=== PATIENT | female | born 1980 | race Two or more races ===

== ENCOUNTER 2017-06-10 10:45 | Emergency (ER) | payer OTHER ==
[~2017-06-10] VITALS: Ht 160 cm; Wt 63.5 kg
[2017-06-10 11:15] LABS: *BILIRUBIN,URIN NEGATIVE (NEGATIVE); *BLOOD, URINE NEGATIVE (NEGATIVE); *CLARITY,URINE SLIGHTLY CLOUDY (CLEAR); *COLOR,URINE YELLOW (YELLOW); *KETONES,URINE NEGATIVE (NEGATIVE); *PROTEIN,URINE NEGATIVE (NEGATIVE); *UROBILINOGEN,URINE 0.2 E.U./dl (NORMAL); LEUKOCYTE ESTERASE ,URINE NEGATIVE (NEGATIVE); NITRITE, URINE NEGATIVE (NEGATIVE); UGLUCOSE NEGATIVE (NEGATIVE)
[2017-06-10] MEDS ORDERED: KETOROLAC TROMETHAMINE 15 MG INJ IV ONE (11:15)
[2017-06-10] MEDS ORDERED: KETOROLAC TROMETHAMINE 15 MG INJ ONE (11:21)
[2017-06-10 11:25] LABS: *URINE HCG, QUAL NEGATIVE (NEGATIVE)
[2017-06-10 11:33] LABS: BACTERIA,URINE FEW /HPF (NONE SEEN); RBC,URINE 0-3 /HPF (0-3); SQUAMOUS EPITHELIAL CELL,UR MANY /HPF (NONE SEEN); WBC,URINE 0-3 /HPF (0-3)
[2017-06-10 11:43] LABS: BASOPHILS % (AUTO) 0.7 % (0.0-2.0); EOSINOPHILS # (AUTO) 0.2 K/uL (0.0-0.7); EOSINOPHILS % (AUTO) 3.2 % (0.0-7.0); HEMATOCRIT 42.1 % (37-47); HEMOGLOBIN 13.6 G/DL (12.0-16.0); LYMPHOCYTES # (AUTO) 1.7 K/UL (0.8-4.8); LYMPHOCYTES % (AUTO) 27.1 % (20.5-51.5); MEAN CORPUSCULAR HEMOGLOBIN 29.3 UUG (27.0-31.0); MEAN CORPUSCULAR HGB CONC 32 g/dL (32.0-37.0); MEAN CORPUSCULAR VOLUME 90.7 FL (81.0-99.0); MONOCYTES # (AUTO) 0.4 K/UL (0.1-1.30); MONOCYTES % (AUTO) 5.7 % (0.0-11.0); NEUTROPHILS # (AUTO) 4.1 K/UL (1.8-8.9); NEUTROPHILS % (AUTO) 63.3 % (38.5-71.5); PLATELET COUNT (AUTO) 260 K/UL (150-450); RED BLOOD CELL COUNT(AUTO) 4.64 MIL/UL (4.2-5.4); WHITE BLOOD COUNT (AUTO) 6.4 K/UL (4.0-11.2)
[2017-06-10 11:46] LABS: CREATININE 0.7 mg/dL (0.6-1.3); POTASSIUM 4.1 mmol/L (3.5-5.1)
[2017-06-10 11:52] LABS: BILIRUBIN,DIRECT 0.1 mg/dL (0.0-0.2); BILIRUBIN,TOTAL 0.3 mg/dL (0.2-1.0); TOTAL PROTEIN, SERUM 7.7 g/dL (6.4-8.2)
[2017-06-10] MEDS ORDERED: MORPHINE SULFATE 4 MG/1 ML DISP.SYRIN IV ONE (12:00)
--- NOTE | 2017-06-10 12:08 | NUR ---
PATIENT WAS SEEN FOR FLANK PAIN. I HAD GIVEN HER TORADOL ORDERED BUT PATIENT STATES SHE STILL [place] PAIN. DR PANCHAL AWARE. MORPHONE JUST GIVEN ORDERED. PATIENT STATES SHE DOES NOT DRIVE AND IS AWARE OF SEDATING EFFECTS OF MORPHINE.
[2017-06-10] MEDS ORDERED: MORPHINE SULFATE 4 MG/1 ML DISP.SYRIN ONE (12:13)
--- NOTE | 2017-06-10 12:41 | NUR ---
PATIENT STATES PAIN HAS DIMINISHED. SHE AMBULATED TO BATHROOM WITH STEADY GAIT. SHE DRANK ABOUT 300 CC OF WATER.
--- NOTE | 2017-06-10 13:29 | NUR ---
DR PANCHAL WAS AT BEDSIDE SPEAKING TO THE PATIENT
[2017-06-10] MEDS ORDERED: IOHEXOL 300MG/ML 100 ML INFUS..BTL ONE (13:46)
[2017-06-10] MEDS ORDERED: IV NORMAL SALINE 250 ML IV ONE (13:46)
--- NOTE | 2017-06-10 13:52 | NUR ---
PATIENT STATES SHE DOES NOT WANT TO DO THE UROGRAM TODAY AD STATES SHE WILL RETURN TOMMORROW FOR THE TEST BECAUSE "I HAVE HAD ENOUGH TESTS TODAY AND NEED TO LEAVE I HAVE SCHOOL". DR PANCHAL NOTIFIED. PAIN IS UNDER CONTROL AT THIS TIME.
--- NOTE | 2017-06-10 14:05 | NUR ---
IV DC'D, CATHETER TIP INTACT, PRESSURE APPLIED, DRESSING APPLIED. DC ,RX AND FOLLOW UP ISNTRUCTIONS GIVEN AND EXPLAINED TO PATIENT WHO STATES SHE UNDERSTANDS ALL INSTRUCTIONS.
[2017-06-10 14:13] VITALS: BP 140/87
== END 2017-06-10 14:13 | disposition home or self-care (01) ==
LOC: ER 10:45
DX: N13.30 Unspecified hydronephrosis (principal)
CPT/HCPCS: 36415; 74176; 80048; 80076; 81001; 83690; 84703 ×2; 85025; 96374; 96375; 99285; A4663; J1885; J2270; J7030; J7050; Q9967

== ENCOUNTER 2017-07-30 12:07 | Emergency (ER) | payer MEDICAID, OTHER ==
[~2017-07-30] VITALS: Ht 160 cm; Wt 63.5 kg
[2017-07-30] MEDS ORDERED: MORPHINE SULFATE 2 MG/1 ML DISP.SYRIN IV ONE (12:45)
[2017-07-30] MEDS ORDERED: KETOROLAC TROMETHAMINE 30 MG INJ IVP ONE (12:45)
[2017-07-30] MEDS ORDERED: IV NS 1000 ML 1,000 ML IV ONE (12:45)
[2017-07-30] MEDS ORDERED: KETOROLAC TROMETHAMINE 30 MG INJ ONE (13:00)
[2017-07-30] MEDS ORDERED: MORPHINE SULFATE 2 MG/1 ML DISP.SYRIN ONE (13:00)
[2017-07-30 13:03] LABS: BASOPHILS # (AUTO) 0.1 K/uL (0.0-8.0); BASOPHILS % (AUTO) 0.8 % (0.0-2.0); EOSINOPHILS % (AUTO) 0.2 % (0.0-7.0); HEMATOCRIT 43.4 % (37-47); HEMOGLOBIN 14.6 G/DL (12.0-16.0); LYMPHOCYTES # (AUTO) 1.5 K/UL (0.8-4.8); LYMPHOCYTES % (AUTO) 20.7 % (20.5-51.5); MEAN CORPUSCULAR HEMOGLOBIN 30.5 UUG (27.0-31.0); MEAN CORPUSCULAR HGB CONC 34 g/dL (32.0-37.0); MEAN CORPUSCULAR VOLUME 90.6 FL (81.0-99.0); MONOCYTES # (AUTO) 0.3 K/UL (0.1-1.30); MONOCYTES % (AUTO) 3.6 % (0.0-11.0); NEUTROPHILS # (AUTO) 5.4 K/UL (1.8-8.9); NEUTROPHILS % (AUTO) 74.7 % (38.5-71.5); PLATELET COUNT (AUTO) 282 K/UL (150-450); RED BLOOD CELL COUNT(AUTO) 4.79 MIL/UL (4.2-5.4); WHITE BLOOD COUNT (AUTO) 7.3 K/UL (4.0-11.2)
[2017-07-30 13:05] LABS: *BLOOD, URINE NEGATIVE (NEGATIVE); *CLARITY,URINE SLIGHTLY CLOUDY (CLEAR); *COLOR,URINE YELLOW (YELLOW); *KETONES,URINE NEGATIVE (NEGATIVE); *PROTEIN,URINE TRACE (NEGATIVE); CREATININE 0.7 mg/dL (0.6-1.3); LEUKOCYTE ESTERASE ,URINE NEGATIVE (NEGATIVE); NITRITE, URINE NEGATIVE (NEGATIVE); UGLUCOSE NEGATIVE (NEGATIVE)
[2017-07-30 13:07] LABS: *URINE HCG, QUAL NEGATIVE (NEGATIVE)
[2017-07-30 13:12] LABS: BILIRUBIN,TOTAL 0.4 mg/dL (0.2-1.0); TOTAL PROTEIN, SERUM 8.1 g/dL (6.4-8.2)
[2017-07-30 13:14] LABS: *BILIRUBIN,URIN NEGATIVE (NEGATIVE)
[2017-07-30 13:15] LABS: BACTERIA,URINE FEW /HPF (NONE SEEN); CALCIUM OXALATE CRYSTALS,UR FEW /HPF (NONE SEEN); RBC,URINE 0-3 /HPF (0-3); SQUAMOUS EPITHELIAL CELL,UR MANY /HPF (NONE SEEN)
--- NOTE | 2017-07-30 13:30 | NUR ---
PT TO CT, NAD NOTED.
--- NOTE | 2017-07-30 14:40 | NUR ---
IV removed. Catheter intact and site benign. Pressure and 4x4 gauze applied to site. No bleeding noted.
--- NOTE | 2017-07-30 14:41 | NUR ---
Patient discharged to home in stable conditon. Written and verbal after care instructions given. Patient verbalizes understanding of instructions. Stressed follow up or return to ER for worsening s/s.
[2017-07-30 14:42] VITALS: BP 114/83
== END 2017-07-30 14:48 | disposition home or self-care (01) ==
LOC: ER 12:14
DX: R10.9 Unspecified abdominal pain (principal); R94.4 Abnormal results of kidney function studies; F17.200 Nicotine dependence, unspecified, uncomplicated
CPT/HCPCS: 36415; 83690; 84703; 85025; 93005; A4663; J1885; J2270; J7030